=== PATIENT | male | born 2000 | race African-American/Black ===

== ENCOUNTER → 2021-09-08 13:30 | Outpatient (CLI) | payer OTHER, SELFPAY ==
--- NOTE | ~2021-09-08 | XR_ITS ---
XR knee RT min 4V 09/08/2021 14:08 Indication: Right knee pain Procedure: 4 views right knee Comparison: No prior studies for comparison. Findings: There is anatomic alignment. No fracture, subluxation or dislocation. No joint space narrow ing. No joint effusion. Impression: 1: No significant bone or joint abnormality. Reviewed, dictated and finalized at location A. F [employer] Impression: 1: No significant bone or joint abnormality.
== END ==
PROVIDERS: Visit Provider Family Medicine
DX: M25.561 Pain in right knee (principal)
CPT/HCPCS: 73564